=== PATIENT | female | born 1980 | race Caucasian/White ===

== ENCOUNTER → 2024-04-13 20:02 | Outpatient (REF) | payer OTHER, SELFPAY | LOC: MRI 3T 20:02 | PROVIDERS: ATTENDING PHYSICIAN Specialist; FAMILY PHYSICIAN Physician Assistant Medical | DX: R51.9 Headache, unspecified (principal) | CPT/HCPCS: 70553; A9575 ==

== ENCOUNTER → 2024-07-26 13:32 | Outpatient (REF) | payer OTHER, SELFPAY | LOC: HWRAD 13:32 | PROVIDERS: ATTENDING PHYSICIAN Physician Assistant Medical | DX: R10.9 Unspecified abdominal pain (principal) | CPT/HCPCS: 74019 ==

== ENCOUNTER → 2024-12-04 10:12 | Outpatient (REF) | payer OTHER, SELFPAY | LOC: WDC 10:12 | PROVIDERS: ATTENDING PHYSICIAN Physician Assistant Medical | DX: N64.3 Galactorrhea not associated with childbirth (principal); N63.0 Unspecified lump in unspecified breast; N63.41 Unspecified lump in right breast, subareolar | CPT/HCPCS: 76642; 77062; 77066 ==

== ENCOUNTER → 2025-07-08 11:13 | Outpatient (REF) | payer OTHER, SELFPAY | LOC: HWRAD 11:13 | PROVIDERS: ATTENDING PHYSICIAN Physician Assistant Medical | DX: R93.89 Abnormal findings on diagnostic imaging of other specified body structures (principal); R05.1 Acute cough | CPT/HCPCS: 71250 ==

== ENCOUNTER → 2025-07-19 19:31 | Outpatient (REF) | payer OTHER, SELFPAY | LOC: MRI 19:31 | PROVIDERS: ATTENDING PHYSICIAN Physician Assistant Medical | DX: D73.89 Other diseases of spleen (principal) | CPT/HCPCS: 74183; A9575 ==